=== PATIENT | female | born 1970 | race Caucasian/White ===

== ENCOUNTER 2017-11-20 09:10 | Emergency (ER) | payer OTHER ==
[~2017-11-20] VITALS: Ht 162.6 cm; Wt 63.5 kg
[2017-11-20] MEDS ORDERED: FLEXERIL PO (09:27)
[2017-11-20 10:07] LABS: HEMATOCRIT 39.9 % (37.0-47.0); HEMOGLOBIN 13.3 gm/dL (12.0-15.0); MCH 32.1 pg (26.0-34.0); MCHC 33.3 g/dL (28.0-37.0); MCV 96.4 fL (80.0-100.0); MPV 8.5 fl. (7.2-11.1); RBC 4.15 mil/uL (4.20-5.00); RDW-CV 13.1 % (10.5-14.5)
[2017-11-20 10:16] LABS: CALCIUM 9.2 mg/dL (8.5-10.1); CREATININE 0.7 mg/dL (0.6-1.3); POTASSIUM 3.9 mmol/L (3.5-5.1)
[2017-11-20 10:21] LABS: ALBUMIN 3.9 g/dL (3.4-5.0); TOTAL BILIRUBIN 0.4 mg/dL (<0.1-1.0); TOTAL PROTEIN 7.4 g/dL (6.4-8.2)
[2017-11-20 10:57] LABS: URINE BILIRUBIN NEGATIVE (Negative); URINE BLOOD 2+ (Negative); URINE CLARITY CLEAR; URINE COLOR YELLOW; URINE GLUCOSE-RANDOM NEGATIVE (Negative); URINE KETONES NEGATIVE (Negative); URINE LEUKOCYTES-REFLEX NEGATIVE (Negative); URINE NITRITE-REFLEX NEGATIVE (Negative); URINE PROTEIN NEGATIVE (Negative); URINE SPECIFIC GRAVITY <= 1.005 (1.005-1.030); URINE UROBILINOGEN 0.2 E.U./dl (0.2-1.0)
[2017-11-20] MEDS ORDERED: MIRALAX17 GM PO (13:11)
[2017-11-20] MEDS ORDERED: ANUSOL-HC25 MG RECTAL (13:11)
[2017-11-20] MEDS ORDERED: DOXYCYCLINE 10100 MG PO (13:11)
[2017-11-20 13:37] VITALS: BP 132/41
== END 2017-11-20 13:38 | disposition home or self-care (01) ==
LOC: M.ERS 09:10
PROVIDERS: Emergency Medicine Emergency Medical Services
DX: K62.89 Other specified diseases of anus and rectum (principal); K59.00 Constipation, unspecified; K64.9 Unspecified hemorrhoids; R33.9 Retention of urine, unspecified; E78.00 Pure hypercholesterolemia, unspecified

== ENCOUNTER 2020-03-30 20:30 | Emergency (ER) | payer OTHER ==
[~2020-03-30] VITALS: Ht 160 cm; Wt 64.9 kg
[~2020-03-30 20:30] MED LIST: ANUSOL-HC25 MG RECTAL; DOXYCYCLINE 10100 MG PO; FLEXERIL PO; MIRALAX17 GM PO
[2020-03-30 21:31] LABS: ABSOLUTE EOSINOPHILS 0.1 thou/uL (0.0-0.7); ABSOLUTE LYMPHOCYTES 1.6 thou/uL (0.8-5.3); ABSOLUTE MONOCYTES 1.2 thou/uL (0.0-1.2); ABSOLUTE NEUTROPHILS 7.4 thou/uL (1.6-8.1); BASOPHILS 0.3 %; EOSINOPHILS 0.7 %; HEMATOCRIT 39.5 % (37.0-47.0); HEMOGLOBIN 13.2 gm/dL (12.0-15.0); LYMPHOCYTES 15.6 %; MCH 31.6 pg (26.0-34.0); MCHC 33.4 g/dL (28.0-37.0); MCV 94.7 fL (80.0-100.0); MONOCYTES 11.2 %; MPV 8.6 fl. (7.2-11.1); NUCLEATED RBCS 0 /100WBC; PLATELET COUNT* 343 thou/uL (150-400); POLYS 72.2 %; RBC 4.17 mil/uL (4.20-5.00); WBC 10.3 thou/uL (4.0-11.0)
[2020-03-30 21:38] LABS: CALCIUM 8.5 mg/dL (8.5-10.1); POTASSIUM 3.4 mmol/L (3.5-5.1)
[2020-03-30 21:42] LABS: ALBUMIN 3.7 g/dL (3.4-5.0); MAGNESIUM 2.1 mg/dL (1.8-2.4); TOTAL BILIRUBIN 0.3 mg/dL (<0.1-1.0); TOTAL PROTEIN 7.5 g/dL (6.4-8.2)
[2020-03-30] MEDS ORDERED: TESSALON PERLE100 M1 PO (22:11)
[2020-03-30] MEDS ORDERED: PHENERGAN 25 MG25 M1 PO (22:11)
[2020-03-31 00:30] VITALS: BP 122/68
--- NOTE | 2020-03-31 12:16 | EKG ---
[place] [address] ELECTROCARDIOGRAM REPORT Name: SHEYLA NEAL Room: [facility]#: [id number] Admission: 03/30/20 Attend Phys: Discharge: 03/31/20 Date of : 72 Date of Service: 03/30/202113 Report #: [id number] THIS REPORT FOR: //name// [facility] ED Test Date: 2020-03-30 Test Time: 21:14:53 Pat Name: SHEYLA NEAL Department: Room: Gender: F Clinical Appeals Rn: : 1970 Requested By: Liu Foss Order Number: [id number] MD: Brandin Agarwal Measurements Intervals [place] Rate: 81 P: 62 [place]: 135 QRS: 0 QRSD: 81 T: 29 QT: 476 QTc: 553 Interpretive Statements Sinus rhythm RSR' in V1 or V2, probably normal variant Borderline T wave abnormalities Prolonged QT interval No previous ECG available for comparison Electronically Signed On 03-31-2020 12:14:30 CDT by Brandin Agarwal [email or web address] <ELECTRONICALLY SIGNED> By: Brandin Agarwal MD, [facility] 03/31/20 1214 13 13 Brandin Agarwal MD, [facility] /EPI
== END 2020-03-31 00:30 | disposition home or self-care (01) ==
LOC: M.ERS 20:30
PROVIDERS: Emergency Medicine Emergency Medical Services
DX: U07.1 COVID-19 (principal); E78.00 Pure hypercholesterolemia, unspecified